=== PATIENT | female | born 1935 | race Caucasian/White ===

== ENCOUNTER 2017-06-05 11:04 | Inpatient (IN) | payer OTHER ==
[2017-06-05 11:39] LABS: PLATELET COUNT 335 10^3/uL (150-400)
--- NOTE | 2017-06-05 11:39 | EDPHY ---
HPI/HX/ROS/PE/MDM Narrative: CHIEF COMPLAINT: Abnormal lab studies HPI: This patient is an 82 year old female with history of COPD arriving at the request of her primary care physician, Dr. Hi, following abnormal lab studies yesterday. She has had pain in the right side of her abdomen intermittently for the past month. This is primarily under her ribcage. She does have history of abdominal surgery including appendectomy and cholecystectomy. she went to her primary care physicians office yesterday for evaluation and had laboratory studies completed. She states the office called her this morning and instructed her to take ambulance to ED due to results of the tests. She is not sure what these results were. No fever, vomiting, diarrhea , rash, chest pain, shortness of breath, urinary complaints, or other associated symptoms. REVIEW OF SYSTEMS: Aside from elements discussed in the HPI, a comprehensive 10-point review of systems was reviewed and is negative. PMH: COPD. Appendectomy, cholecystectomy. SOCIAL HISTORY: Lives in [place]. Retired. Family member at bedside. PHYSICAL EXAM: General:Patient is alert, in no acute distress. ENT:Eyes are normal to inspection. ENT inspection normal. Neck: Normal inspection. Full range of motion. Respiratory:No respiratory distress. Breath sounds normal bilaterally. Cardiovascular: Regular rate and rhythm. Strong peripheral pulses. Normal cap refill. Abdomen:The abdomen is nontender to palpation. There are no peritoneal signs. There are normal bowel sounds. Back: Normal to inspection. No tenderness to palpation. Skin: Normal color. No rash. Warm and dry. Extremities: Normal appearance. Full range of motion. Neuro: Oriented x3. Normal motor function. Normal sensory function. ED Course: 82 y/o female presents at the request of her primary care physician for evaluation following abnormal lab results for a possible infection as well as persistent abdominal pain. Plan for CT abdomen/pelvis. Plan for labs including CBC, chemistries, liver, lipase. Plan to administer 0.5mg IV Dilaudid, 1L IV NS, 4mg IV Zofran for symptom relief. EKG was ordered and interpreted by myself. Please see [facility] system for official reading. Sinus tachycardia. 12:00 Spoke with RANJEET for Dr. Hi's office. Patient was reportedly sent in for elevated WBC. 13:[address] Cardoso, radiologist. CT abdomen/pelvis shows sigmoid diverticulitis and a pancreatic mass with liver metastases. 13:50 Reassessed patient. Discussed results. Plan for admission. 13:56 Spoke with hospitalist service. Dr. Hdez accepts admission for sigmoid diverticulitis and new diagnosis pancreatic mass. - Data Points Imaging Results: Imaging Impressions Abdomen CT 06/05/17 11:50 Impression: 1. Moderate diverticulitis of the sigmoid colon. 2. Large pancreatic tail mass probably invading the posterior wall of the stomach, with extensive liver metastatic disease. There also may be metastatic disease in the left adrenal gland. Omental carcinomatosis. Lymphadenopathy, more predominant in the portacaval region. Also, probable metastatic lesion in L5. 3. Other chronic findings, as above. Results called and discussed with Song Neff MD, on 06/05/2017, 13:58. Imaging: Discussed imaging studies w/ call center agent Radiologist Laboratory Results: Laboratory Results 06/05/17 11:08 06/05/17 11:08 06/05/17 06/05/17 06/05/17 11:08 11:08 11:08 WBC 13.86 10^3/uL H 10^3/uL (3.80-9.50) RBC 4.41 10^6/uL 10^6/uL (4.18-5.33) Hgb 13.3 g/dL g/dL (12.6-16.3) Hct 39.9 % % (38.0-47.0) MCV 90.5 fL fL (81.5-99.8) MCH 30.2 pg pg (27.9-34.1) MCHC 33.3 g/dL g/dL (32.4-36.7) RDW 12.9 % % (11.5-15.2) Plt Count 335 10^3/uL 10^3/uL (150-400) MPV 10.3 fL fL (8.7-11.7) Neut % (Auto) 81.3 % H % (39.3-74.2) Lymph % (Auto) 10.0 % L % (15.0-45.0) Willacy % (Auto) 7.3 % % (4.5-13.0) Eos % (Auto) 0.4 % L % (0.6-7.6) Baso % (Auto) 0.4 % % (0.3-1.7) Nucleat RBC Rel Count 0.0 % % (0.0-0.2) Absolute Neuts (auto) 11.27 10^3/uL H 10^3/uL (1.70-6.50) Absolute Lymphs (auto) 1.39 10^3/uL 10^3/uL (1.00-3.00) Absolute Monos (auto) 1.01 10^3/uL H 10^3/uL (0.30-0.80) Absolute Eos (auto) 0.05 10^3/uL 10^3/uL (0.03-0.40) Absolute Basos (auto) 0.05 10^3/uL 10^3/uL (0.02-0.10) Absolute Nucleated RBC 0.00 10^3/uL 10^3/uL (0-0.01) Immature Gran % 0.6 % % (0.0-1.1) Immature Gran # 0.09 10^3/uL 10^3/uL (0.00-0.10) Sodium 132 mEq/L L mEq/L (135-145) Potassium 3.4 mEq/L L mEq/L (3.5-5.2) Chloride 91 mEq/L L mEq/L (97-110) Carbon Dioxide 23 mEq/l mEq/l (22-31) Anion Gap 18 mEq/L H mEq/L (8-16) BUN 13 mg/dL mg/dL (7-23) Creatinine 0.6 mg/dL mg/dL (0.6-1.0) Estimated GFR > 60 Glucose 147 mg/dL H mg/dL (70-100) Calcium 9.1 mg/dL mg/dL (8.5-10.4) Total Bilirubin 1.8 mg/dL H mg/dL (0.1-1.4) Conjugated Bilirubin 0.9 mg/dL H mg/dL (0.0-0.5) Unconjugated Bilirubin 0.9 mg/dL mg/dL (0.0-1.1) AST 42 IU/L IU/L (14-46) ALT 25 IU/L IU/L (9-52) Alkaline Phosphatase 192 IU/L H IU/L (38-126) Total Protein 6.4 g/dL g/dL (6.3-8.2) Albumin 3.4 g/dL L g/dL (3.5-5.0) Lipase 31 IU/L IU/L (23-300) Medications Given: Discontinued Medications Hydromorphone HCl (Dilaudid) 0.5 mg IVP EDNOW ONE Stop: 06/05/17 13:01 Last Admin: 06/05/17 13:06 Dose: 0.5 mg Sodium Chloride (Ns) 1,000 mls @ 0 mls/hr IV EDNOW ONE; Wide Open PRN Reason: Protocol Stop: 06/05/17 13:01 Last Admin: 06/05/17 13:06 Dose: 1,000 mls General Time Seen by Provider: 06/05/17 11:30 Initial Vital Signs: Initial Vital Signs Temperature (C) 36.6 C 06/05/17 11:16 Heart Rate 110 H 06/05/17 11:16 Respiratory Rate 18 06/05/17 11:16 Blood Pressure 125/68 H 06/05/17 11:16 O2 Sat (%) 93 06/05/17 11:16 O2 Delivery Mode Nasal Cannula O2 (L/minute) 2 Allergies/Adverse Reactions: codeine [Codeine] Allergy (Mild, Verified 03/26/16 11:18) Vomiting Penicillins Allergy (Mild, Verified 03/26/16 11:18) SWELLING steroids Allergy (Uncoded 03/26/16 11:18) Other-Enter Comments Home Medications: Medication Instructions Recorded Amlodipine Besylate/Benazepril 1 each PO DAILY 09/23/15 [Amlodipine-Benazepril 5-10 mg] Albuterol [Proventil Inhaler HFA 1 - 2 puffs IH DAILY PRN 03/23/16 (*)] LORazepam [Ativan (*)] 0.5 mg PO TID PRN 03/23/16 Herbals/Supplements -Info Only 1 ea PO DAILY 06/05/17 Loperamide HCl [Imodium 2 mg (*)] 2 mg PO PRN PRN 06/05/17 diphenhydrAMINE [Benadryl 25 MG 25 mg PO Q2D 06/05/17 (*)] Departure - Departure Disposition: [facility] Acute Clinical Impression: Sigmoid diverticulitis, Pancreatic mass, Liver metastases Condition: Fair Report Scribed for: Song Neff Report Scribed by: Kiersten Mazariegos Date of Report: 06/05/17 Time of Report: 13:31 Physician Review and Approval Statement: Portions of this note were transcribed by an ED scribe. I personally performed the history, physical exam, and medical decision making; and confirm the accuracy of the information in the transcribed note.
[2017-06-05] MEDS ORDERED: IOPAMIDOL (ISOVUE-300) 100 ML BTL ONE (12:43)
[2017-06-05] MEDS ORDERED: NS 1,000 ML IV ONE (13:00)
[2017-06-05] MEDS: HYDROmorphONE/DILAUDID 1 MG/ML INJ IVP ONE ×2 (13:06→15:31)
[2017-06-05] MEDS ORDERED: ONDANSETRON 4 MG/2 ML VIAL ONE (13:09)
[2017-06-05] MEDS ORDERED: ONDANSETRON 4 MG/2 ML VIAL IVP ONE (13:11)
--- NOTE | 2017-06-05 13:13 | CPEKG ---
Heart Rate: 101 RR Interval: 594 P-R Interval: 136 QRSD Interval: 80 QT Interval: 308 QTC Interval: 400 P Leeds: 64 QRS Leeds: 39 T Wave Leeds: 216 EKG Severity - OTHERWISE NORMAL ECG - EKG Impression: SINUS TACHYCARDIA Electronically Signed By: Song Neff 05-Jun-2017 15:06:53
[2017-06-05] MEDS ORDERED: ACETAMINOPHEN 325 MG TAB PO PRN (14:07)
[2017-06-05] MEDS ORDERED: HYDROmorphONE/DILAUDID 1 MG/ML INJ IVP PRN (15:00)
[2017-06-05] MEDS ORDERED: HYDROmorphONE/DILAUDID 1 MG/ML INJ ONE (15:27)
[2017-06-05] MEDS ORDERED: ALBUTEROL 60 PUFFS/8 GM MDI IH PRN (16:10)
--- NOTE | 2017-06-05 16:36 | GHP ---
[f rep st] HISTORY AND PHYSICAL DATE OF ADMISSION: 06/05/2017 CHIEF COMPLAINT: Right upper quadrant pain, diverticulitis, pancreatic mass. HISTORY OF PRESENT ILLNESS: Patient is an 82-year-old female with history of breast cancer status po st mastectomy, COPD on oxygen at night, who arrived at the request of her PCP, Dr. Hi, following abnormal labs done yesterday. The patient is accompanied by her son who provides some history. She complains of right upper and middle abdominal pain for the past month. She describes it as sharp, cr ampy, achy. burning intermittently. There are no aggravating factors. It is relieved by heating pad . She has had night sweats. Has lost 7 to 8 pounds in the last month, which she attributes to decre ased oral intake due to low appetite. Her son says she is not as energetic. No nausea, vomiting. H ad a normal BM today here in the ER. No headaches. REVIEW OF SYSTEMS: I completed a 10-point review of systems, negative except as noted in HPI. PAST MEDICAL HISTORY: Hypertension, IBS, history of breast cancer status post mastectomy, chronic hy poxemic respiratory failure on oxygen at night, COPD. . PAST SURGICAL HISTORY: Left hip arthroplasty, right hip surgery, mastectomy, left lobectomy, cholecy stectomy, appendectomy. SOCIAL HISTORY: Lives with her son, Ismael, in [facility]. She had a 30 pack year of cigarettes. Al cohol, a glass of wine a day. No illicits. MEDICATIONS: Benadryl, albuterol, Imodium as needed, Ativan 0.5 mg three times daily, herbal supplem ent, Norvasc/benazepril 5/10 mg daily. ALLERGIES: Codeine, penicillin is moderate, she says swelling in her throat. PHYSICAL EXAMINATION: VITAL SIGNS: Temperature is 36.6, blood pressure 125/68, heart rate in the 1- teens, now 94, respirations 16, 93% on room air. GENERAL: Tired-appearing, appears older than stated age. HEENT: PERRLA. Mildly dry mucous membranes. CARDIOVASCULAR: Regular rate and rhythm. No murmu rs, gallops, or rubs. LUNGS: Clear to auscultation. ABDOMEN: Distended. Palpable mass right uppe r quadrant, tenderness right upper quadrant and epigastrium. No rebound or guarding. Mild left lowe r quadrant tenderness. MUSCULOSKELETAL: 5/5 upper and lower extremity strength. NEUROLOGIC: 2 thro ugh 12 intact. PSYCHIATRIC: Alert, oriented x3. LABORATORY STUDIES: Sodium 132, potassium 3.4, chloride 91, anion gap 18, creatinine 0.6, glucose 14 7, calcium 9.1, total bilirubin is 1.8, 0.8, alkaline phosphatase 192, albumin 3.4, TP 6.4, lipase 31. WBC 13.86, hemoglobin 13, hematocrit 39, platelets 335. EKG is personally reviewed by me. Sinus tachycardia. Normal sinus rhythm. LVH with ST with ___. No old to compare. IMAGING: Abdominal CT, moderate diverticulitis in the sigmoid colon with wall thickening. No eviden ce of intraperitoneal air. Numerous hypodense lesions in the liver, largest is in the right lobe sarkis uring 17 cm over the dome. Large multi lobulated hypodense mass in the tail of the pancreas measuring 5 5 cm. Large lymph nodes in the portacaval region measuring 2 cm. Small periaortic lymph nodes vi sualized. Probable small subsegmental renal portal cyst. Soft tissue masses are seen in the mesente ty fat anteriorly, inferior to the liver and on the left. ASSESSMENT AND PLAN: 1. Acute abdominal pain, likely multifactorial with pancreatic mass and liver lesions as well as div erticulitis: Patient with mild leukocytosis but no fever. No obvious abscess on imaging. Will jazzy t for diverticulitis with ertapenem as has a moderate allergy to penicillin. Supportive care with IV fluids and antiemetics and IV opioids. 2. Suspected metastatic pancreatic cancer: Large tail mass with multiple lesions in liver as well a s lymphadenopathy. I discussed at length with the patient and her son on options such as biopsy. Esther courtney wants take time to think about her next steps as she is not in favor of chemo. We will check tumor markers. 3. Leukocytosis: Likely secondary to diverticulitis versus dehydration. She is currently afebrile. Will culture fevers. Denies any infectious symptoms. 4. Hypovolemic hyponatremia: Secondary to decreased p.o. intake. Will start IV fluids. 5. Hypokalemia: Again, secondary to decreased p.o. intake. Check magnesium as well. 6. Chronic obstructive pulmonary disease: No evidence of exacerbation. Resume home albuterol. 7. Chronic hypoxemic respiratory failure: Continue oxygen. No infectious symptoms. 8. History of breast cancer. 9. Irritable bowel syndrome: Stable. 10. Hypertension: Will resume home medications. 11. Diet: N.p.o., IV fluids. 12. Deep venous thrombosis prophylaxis. SCDs. 13. Disposition: Patient warrants inpatient admission given acute abdominal pain, diverticulitis and pancreatic mass, warranting IV antibiotics, fluids and possible biopsy. /[id number]/MODL
--- NOTE | 2017-06-05 16:38 | ASMTLACE ---
[place] Acuity / Level of Answers: Yes Care: Did the patient have an inpatient admission? Comorbidities - select Answers: Any tumor (including all that apply lymphoma or leukemia) Chronic pulmonary disease # of Emergency department Answers: 1-2 visits in the last 6 months Score: 8 Date Signed: 06/05/2017 04:38 PM Electronically Signed By:Oksana Miller RN
[2017-06-05] MEDS: HYDROmorphONE/DILAUDID 2 MG/ML INJ IVP PRN ×2 (17:06→22:03)
[2017-06-05] MEDS: D5W NS 1,000 ML IV SCH (17:10)
[2017-06-05] MEDS: ERTAPENEM 1 GM VIAL IV SCH (18:13)
[2017-06-05] MEDS: ONDANSETRON 4 MG/2 ML VIAL IVP PRN (18:38)
[2017-06-05] MEDS: LORazepam 0.5 MG TAB PO SCH (22:03)
[2017-06-06] MEDS: HYDROmorphONE/DILAUDID 2 MG/ML INJ IVP PRN ×4 (03:59→17:31)
[2017-06-06] MEDS: ONDANSETRON 4 MG/2 ML VIAL IVP PRN (04:09)
[2017-06-06] MEDS: D5W NS 1,000 ML IV SCH ×2 (05:51→23:26)
[2017-06-06] MEDS ORDERED: PROTOCOL POTASSIUM 1 DOSE MISC PRN (06:45)
[2017-06-06] MEDS ORDERED: PROTOCOL MAGNESIUM 1 DOSE IV PRN (06:45)
[2017-06-06] MEDS ORDERED: POTASSIUM Cl (KCl) 100 ML IV SCH ×2 (07:45→17:45)
[2017-06-06] MEDS ORDERED: MAGNESIUM SULF 1 GM/DEXTROSE 100 ML IV ONE ×2 (08:28→13:45)
[2017-06-06] MEDS: ERTAPENEM 1 GM VIAL IV SCH (08:29)
[2017-06-06] MEDS: AMLODIPINE BESYLATE 5/BENAZEPRIL 10MG 1 EACH CAP PO SCH ×2 (08:32→12:38)
[2017-06-06] MEDS: LORazepam 0.5 MG TAB PO SCH ×3 (08:32→21:47)
[2017-06-06] MEDS: POTASSIUM Cl (KCl) 10 MEQ in NS 100 ML IV SCH ×7 (08:32→20:17)
[2017-06-06] MEDS ORDERED: Herbals/Supplements -Info Only PO SCH (09:00)
--- NOTE | 2017-06-06 10:29 | PDMN ---
Medical Necessity Medical necessity: Patient meets INPT criteria per physician note and MCG M-150 Diverticulitis, Acute (acute abdominal pain, mod. diverticulitis on CT abd, suspected metastatic pancreatic cancer; leukocytosis/WBC > 13,000, elevated liver enzymes; anticipated LOS > 2 midnights for IV hydration, IV antibiotics, IV opioids, further evaluation of new pancreatic mass with stomach, liver, poss L5 and adrenal lesions.)
--- NOTE | 2017-06-06 14:33 | HOSPPROG ---
Hospitalist Progress Note Assessment/Plan: #Acute abdominal pain: due to liver masses. Pain controlled #Suspected metastatic pancreatic cancer -large panc tail mass with liver, omental lesions, LAD. Elevated CA-125. CA 19- 9 pending -she is leaning toward comfort care, but wants to d/w son #Sigmoid diverticulitis -min pain. normal lactate. Trial clears. Cont Ertapenem with PCN-allergies #Hypovolemic hyponatremia: recent decreased PO intake. IVF #Hypokalemia/hypomagnesium: on protocol #Leukocytosis: mildly improved. Afebrile. #Diet: clears, ADAT #SCDs #Goals: she is leaning towards Palliative measures and no biopsy, but she wants to d/w son. Palliative care consulted Subjective: pain controlled in RUQ. Hungry and wants to eat Objective: Vital Signs Temp Pulse Resp BP Pulse Ox 36.8 C 91 18 120/54 L 94 06/06/17 09:38 06/06/17 14:09 06/06/17 14:09 06/06/17 14:09 06/06/17 14:09 Laboratory Results 06/06/17 04:48 06/06/17 04:48 06/05/17 06/06/17 06/07/17 05:59 05:59 05:59 Intake Total 1776 Output Total 100 Balance 1776 -100 - Physical Exam Constitutional: other (tired) Eyes: PERRL Ears, Nose, Mouth, Throat: moist mucous membranes, hearing normal Cardiovascular: regular rate and rhythym, no murmur, rub, or gallop Respiratory: no respiratory distress Gastrointestinal: distension, other (mass palpable RUQ. Min LLQ TTP, +BS) Genitourinary: no bladder fullness Skin: warm Musculoskeletal: full muscle strength Neurologic: AAOx3 Psychiatric: interacting appropriately ICD10 Worksheet Patient Problems: Problems Problem Status Onset Liver metastases Acute Pancreatic mass Acute Sigmoid diverticulitis Acute Osteoarthritis of left hip Acute
--- NOTE | 2017-06-06 15:41 | ASMTCMCOM ---
CM Note CM Note Notes: Pt admitted with suspected pancreatic ca. Pt is leaning towards no treatment but wants to discuss with her son before she makes her final decision. has ordered a palliative consult. CM will continue to follow for any DC needs. Date Signed: 06/06/2017 03:40 PM Electronically Signed By:Anali Velazquez LCSW
[2017-06-06] MEDS ORDERED: POTASSIUM CL 20 MEQ TAB PO ONE (20:15)
[2017-06-07] MEDS: HYDROmorphONE/DILAUDID 2 MG/ML INJ IVP PRN ×3 (01:59→17:33)
[2017-06-07] MEDS: LORazepam 0.5 MG TAB PO SCH ×3 (08:29→20:45)
[2017-06-07] MEDS: ERTAPENEM 1 GM VIAL IV SCH (08:31)
[2017-06-07] MEDS ORDERED: POTASSIUM CL 10 MEQ TAB PO ONE ×2 (12:57→20:45)
--- NOTE | 2017-06-07 14:52 | HOSPPROG ---
Hospitalist Progress Note Assessment/Plan: #Acute abdominal pain: due to liver/pancreatic masses. Pain controlled #Suspected metastatic pancreatic cancer: + CA-125, 19-9 -appreciate Oncology consult. Patient would like to pursue tissue biopsy. -difficulty eating may due to tumor burden posterior stomach. Concern for subsequent gastric outlet obstruction in future. -May benefit from XRT for palliation #Sigmoid diverticulitis -min pain. normal lactate. Trial clears. Cont Ertapenem (PCN-allergy). Day 3 #Hypovolemic hyponatremia: recent decreased PO intake. Improved with IVFs #Rectal bleeding: decreased. She reports related to hemorrhoids. If related to tumor would expect melena given invasion near stomach. Repeat H/H stable #Hypokalemia/hypomagnesium: on protocol. Repleted #Leukocytosis: mildly improved. Afebrile. #Diet: clears, ADAT #SCDs #Goals: son is very involved. Palliative Care consulted #Disp: cont inpatient admission for IV abx, liver bx. Discussed with Dr. Moss Subjective: min rectal bleeding today. No dizziness or lightheadedness. RUQ pain controlled Objective: Vital Signs Temp Pulse Resp BP Pulse Ox 36.8 C 87 18 130/81 H 92 06/07/17 08:35 06/07/17 08:35 06/07/17 08:35 06/07/17 08:35 06/07/17 08:35 Laboratory Results 06/07/17 12:09 06/07/17 04:38 06/06/17 06/07/17 06/08/17 05:59 05:59 05:59 Intake Total 1776 2614 Output Total 100 Balance 1776 2514 - Time Spent With Patient Time Spent with Patient: greater than 35 minutes Time Spent with Patient: Greater than 35 minutes spent on this patients care, greater than 50% of time spent counseling, educating, and coordinating care regarding the above mentioned plan. - Physical Exam Constitutional: chronically ill appearing Eyes: PERRL Ears, Nose, Mouth, Throat: moist mucous membranes, hearing normal Cardiovascular: regular rate and rhythym, no murmur, rub, or gallop Respiratory: no respiratory distress Gastrointestinal: tenderness (most in RUQ, mild in LLQ, +BS), distension Skin: warm Musculoskeletal: full muscle strength Neurologic: AAOx3, CN II-XII Intact Psychiatric: poor insight ICD10 Worksheet Patient Problems: Problems Problem Status Onset Liver metastases Acute Pancreatic mass Acute Sigmoid diverticulitis Acute Osteoarthritis of left hip Acute
--- NOTE | 2017-06-07 15:56 | ASMTCMCOM ---
CM Note CM Note Notes: Chart reviewed. Attempted to met with patient but she is asleep. Notes indicate patient wishes to pursue biopsy. Plan of care TBD at this time. CM to follow. Date Signed: 06/07/2017 03:55 PM Electronically Signed By:Megan Grace RN
--- NOTE | 2017-06-07 16:24 | ASMTCMCOM ---
CM Note CM Note Notes: Per Spiritual services, Palliative care to meet with patient next week after biopsy results are in. CM to follow. Date Signed: 06/07/2017 04:23 PM Electronically Signed By:Megan Grace RN
--- NOTE | 2017-06-07 16:59 | GCON ---
[f rep st] CONSULTATION MEDICAL ONCOLOGY CONSULTATION REQUESTING PHYSICIAN: Dr. Nancy Hdez. REASON FOR CONSULTATION: Pancreatic mass with evidence of metastasis. HISTORY OF PRESENT ILLNESS: The patient is an 82-year-old female with a history of breast cancer 20 years ago as well as COPD on O2 at night, who was admitted for abnormal labs and abdominal pain. The patient reports she was in her usual state of health up until a month ago when she started to experi ence mild weight loss, poor p.o. intake and weakness. Prior to admission, she was complaining of rig ht upper and middle abdominal pain, described it as sharp, crampy, intermittent, burning. She denied any back pain. She has had some nausea and difficulty eating due to this. She did have a normal jacob wel movement in the ER on admission, but has had some hematochezia since that time. She does report a history of hemorrhoids. The patient had a CT of her abdomen done on the day of admission on 06/05/2017, showing moderate dive rticulitis of sigmoid colon, a large pancreatic tail mass probably invading posterior wall of the sto mach with extensive liver metastatic disease, may also be metastatic disease in left adrenal gland. Omental carcinomatosis is noted. Lymphadenopathy more predominant in portacaval region. Also, proba ble metastatic lesion in L5. Other chronic findings were noted. The patient has been waxing and waning as far as wanting treatment but requested an oncology consult today to discuss with her son. She continues on ertapenem for evidence of diverticulitis but still h aving issues with nausea and abdominal pain. She does respond to IV Dilaudid. I will note that CA-1 9-9 is 5732 and CA-125 is 218. REVIEW OF SYSTEMS: As per HPI, otherwise negative. PAST MEDICAL HISTORY: 1. Hypertension. 2. IBS. 3. Breast cancer 20 years ago status post mastectomy, no adjuvant radiation or chemotherapy per emily ent choice. 4. Chronic hypoxemia due to COPD, on chronic O2. PAST SURGICAL HISTORY: Left hip arthroplasty, right hip surgery, mastectomy, left lobectomy, cholecy stectomy, appendectomy. Her left hip arthroplasty was about a year ago and she had cardiac clearance . SOCIAL HISTORY: Lives with son. Has smoked for many years. Occasionally drinks. No illicits. She was very functional at home prior to this admission. MEDICATIONS: Have been reviewed. ALLERGIES: Have been reviewed. PHYSICAL EXAM: VITAL SIGNS: Blood pressure currently 130/81, pulse of 87, saturating 92% on 2 L luis al cannula. Respiration 18. Temp 36.8. GENERAL: She is an elderly woman, looks her stated age, no t in acute distress. HEENT: Anicteric sclerae. Oropharynx is clear. NECK: Supple. No supraclavic ular lymphadenopathy. HEART: Regular rate and rhythm. LUNGS: She has coarse breath sounds bilater ally, maybe mild crackle at right lower lobe. ABDOMEN: Distended. She is tender throughout. No ob vious ascites. EXTREMITIES: Lower extremities no significant edema. NEUROLOGIC: Nonfocal. LABS: Today show hemoglobin 11.7, hematocrit 35.4. Her most recent CMP was yesterday, sodium 132, p otassium 2.9, calcium 8.1, total bilirubin 0.8, AST 32, ALT 26, alkaline phosphatase 160, total prote in 5.1, albumin 2.5, lipase 31. CA-19-9 and CA-125 elevated, as discussed above. ASSESSMENT AND PLAN: This is an 82-year-old woman with the above-mentioned past medical history, cherise becky chronic obstructive pulmonary disease, admitted for abdominal pain and subsequently discovered to have evidence of sigmoid diverticulitis as well as large pancreatic mass and significant amount of m etastasis throughout the abdomen. 1. Pancreatic mass with associated liver metastasis, peritoneal carcinomatosis, and other findings a s detailed above. CA-19-9 very elevated, CA-125 elevated as well. Concern for pancreatic cancer. Ca nnot rule out other subtypes of cancer at this time without tissue biopsy. The patient's performance status is approximately a 2. She reports she was doing a lot better at home before she got sick a m onth ago. I discussed my concern with CT findings today showing a large pancreatic mass with probabl e invasion to the posterior stomach. She understands this is treatable, but given the current findin gs, may result in high morbidity. She is at least interested in obtaining a tissue biopsy to help he r make a decision about comfort care or pursuing a modified treatment plan. She has no evidence of g astric outlet obstruction but certainly, this would be a concern of mine. May even consider some pal liative radiation due to possible stomach invasion. I am not sure the patient would tolerate much, a nd may offer her gemcitabine as a single agent if she wants treatment. However, she is unclear if kennedi courtney wants to pursue this at all. Intravenous access would be an issue, she will probably need a periph erally inserted central catheter line. 2. Diverticulitis, on antibiotics. This may be contributing to some of her pain. 3. Abdominal pain due to #1 and #2. She is on intravenous Dilaudid and responding. Consider fentan yl patch to better control pain, especially if she is pursuing hospice. 4. Intermittent hematochezia, possibly due to hemorrhoids. Would need to monitor this closely if kennedi courtney wanted to pursue any form of treatment. 5. Chronic obstructive pulmonary disease. Remains stable from a respiratory standpoint. Greater than 40 minutes was spent with patient and son, discussing options. At this time, they have opted to move forward with a biopsy alone and can make further recommendations as more family members are able to arrive. /[id number]/MODL
[2017-06-07] MEDS: NS 1,000 ML IV SCH (20:54)
[2017-06-08] MEDS: HYDROmorphONE/DILAUDID 2 MG/ML INJ IVP PRN ×3 (05:17→23:23)
[2017-06-08] MEDS ORDERED: MAGNESIUM SULF 1 GM/DEXTROSE 100 ML IV ONE (08:23)
[2017-06-08] MEDS: LORazepam 0.5 MG TAB PO SCH ×4 (09:19→20:38)
[2017-06-08] MEDS: ERTAPENEM 1 GM VIAL IV SCH (09:20)
[2017-06-08] MEDS: NS 1,000 ML IV SCH ×2 (09:28→18:41)
--- NOTE | 2017-06-08 10:17 | SOAPPROG ---
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 Biopsy soon to confirm * Acute abdominal pain controlled with 1.2 mg dilaudid iv yesterday - not enough for patch. Will try Tramadol * Most likely incurable and she doesn't want chemo * Probable gastric outlet * Reluctant to undergo barium study * Might benefit from J-tube but she is undecided * Sigmoid diverticulitis * min pain. normal lactate. Trial clears. Cont Ertapenem (PCN-allergy). Day 4 * Disposition * Suspect best course of action is palliative care only with hospice. Palliative care consult written * She has a lot of questions about finances and care for her son Objective: Vital Signs Temp Pulse Resp BP Pulse Ox 36.2 C 99 18 141/75 H 93 06/08/17 04:00 06/08/17 04:00 06/08/17 04:00 06/08/17 04:00 06/08/17 04:00 Laboratory Results 06/08/17 05:10 06/08/17 05:10 06/07/17 06/08/17 06/09/17 05:59 05:59 05:59 Intake Total 2614 1271 Output Total 100 Balance 2514 1271 - Time Spent With Patient Time Spent With Patient: 25 minutes Physical Exam - Physical Exam General Appearance: no apparent distress Neuro/Psych: other (Not disoriented but a little foogy with narcotics) ICD10 Worksheet Patient Problems: Problems Problem Status Onset Liver metastases Acute Pancreatic mass Acute Sigmoid diverticulitis Acute Osteoarthritis of left hip Acute
[2017-06-08] MEDS: traMADol 50 MG TAB PO PRN (14:04)
--- NOTE | 2017-06-08 15:26 | HOSPPROG ---
Hospitalist Progress Note Assessment/Plan: 82-year-old woman with a history of COPD and a remote history of breast cancer is admitted with abdominal pain and weight loss. She saw her primary care provider the day before admission had some blood work done and was told to come into the hospital. Evaluation included a CT scan which revealed a pancreatic mass with gastric involvement and liver Mets. # pancreatic mass with liver Mets and gastric involvement. Elevated CA 19-9 points to likely pancreatic primary * Ultrasound-guided biopsy of liver metastases to be done on Saturday * Appreciate Oncology note apparently patient is not interested in chemotherapy at this time and will work towards palliative care * Pain control, tramadol and effective today will try oral Dilaudid # sigmoid diverticulitis, mild tenderness on the sigmoid colon and patient has ongoing diarrhea * Continue IV antibiotics * Advance diet slowly, will let her try light diet and see how she does # diarrhea, and reluctant to start Imodium given her acute diverticulitis. Will follow for now and consider pancreatic enzymes if persists # possible gastric outlet obstruction given location of gastric wall thickening and pancreatic mass. Patient is reluctant to undergo barium swallow. She might benefit from a J-tube but is undecided at this time. Will see how she tolerates oral. # COPD, mild: Continue oxygen as needed nebs as needed. # hypokalemia, replace as needed # leukocytosis, likely secondary to cancer and diverticulitis will follow. Disposition: Patient has poor prognosis at this time and is declining chemotherapy. Palliative care to meet with patient and son. Subjective: Patient new to me and chart reviewed. Discussed with Dr. Diana. Tried the tramadol earlier but was ineffective so back on IV Dilaudid and her pain is better controlled Objective: Vital Signs Temp Pulse Resp BP Pulse Ox 36.3 C 81 18 121/69 H 96 06/08/17 09:05 06/08/17 09:05 06/08/17 09:05 06/08/17 09:05 06/08/17 09:05 Laboratory Results 06/08/17 05:10 06/08/17 05:10 06/07/17 06/08/17 06/09/17 05:59 05:59 05:59 Intake Total 2614 1271 Output Total 100 600 Balance 2514 1271 -600 - Physical Exam Constitutional: uncomfortable Eyes: PERRL, anicteric sclera, EOMI Ears, Nose, Mouth, Throat: moist mucous membranes, ears appear normal Cardiovascular: regular rate and rhythym Respiratory: no respiratory distress, clear to auscultation Gastrointestinal: tenderness (Epigastric area right upper quadrant and left lower quadrant), distension, No normoactive bowel sounds, No guarding, No rebound Genitourinary: no bladder fullness Skin: warm Musculoskeletal: generalized weakness Neurologic: AAOx3 Psychiatric: interacting appropriately, not anxious ICD10 Worksheet Patient Problems: Problems Problem Status Onset Liver metastases Acute Pancreatic mass Acute Sigmoid diverticulitis Acute Osteoarthritis of left hip Acute
[2017-06-08] MEDS ORDERED: HYDROmorphONE/DILAUDID 2 MG TAB PO PRN (15:36)
[2017-06-08] MEDS: ALTEPLASE 2 MG VIAL IVP PRN (22:40)
[2017-06-09] MEDS: ALTEPLASE 2 MG VIAL IVP PRN (04:13)
[2017-06-09] MEDS: traMADol 50 MG TAB PO PRN (04:37)
[2017-06-09 04:49] LABS: INR 1.42 (0.83-1.16); PROTIME(PATIENT) 17.5 SEC (12.0-15.0)
[2017-06-09] MEDS ORDERED: MAGNESIUM SULF 1 GM/DEXTROSE 100 ML IV ONE (07:23)
[2017-06-09] MEDS ORDERED: POTASSIUM Cl (KCl) 100 ML IV SCH (07:30)
[2017-06-09] MEDS: LORazepam 0.5 MG TAB PO SCH ×3 (07:41→22:13)
[2017-06-09] MEDS: ERTAPENEM 1 GM VIAL IV SCH (08:29)
[2017-06-09] MEDS: POTASSIUM Cl (KCl) 10 MEQ in NS 100 ML IV SCH ×3 (08:30→13:41)
--- NOTE | 2017-06-09 10:33 | SOAPPROG ---
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 * Acute abdominal pain controlled with 1.2 mg dilaudid iv yesterday - not enough for patch. Tramadol not helpful. Tried oral dialaudid. * Most likely incurable and she doesn't want chemo but she "wants to live 5 months". I told her the average without chemo is within 3 months * Probable gastric outlet * Reluctant to undergo barium study * I explained that without some nutrition, she will sooner. Suspect she is partially obstructed. Spoke with Dr. Mcwilliams and GI might be able to stent her. Will get formal consult to assess obstruction, get biopsies, and see if she would qualify for a stent. * I tried to call son multiple times but no answer * Sigmoid diverticulitis * min pain. normal lactate. Trial clears. Cont Ertapenem (PCN-allergy). Day 5 * Disposition * Suspect best course of action is palliative care only with hospice. Palliative care consult written * She has a lot of questions about finances and care for her son Subjective: Trying some cream of wheat this morning. Mixed tolerability to clears. Still little foggy. Objective: Vital Signs Temp Pulse Resp BP Pulse Ox 36.6 C 79 16 137/80 H 97 06/09/17 07:36 06/09/17 07:36 06/09/17 07:36 06/09/17 07:36 06/09/17 07:36 Laboratory Results 06/09/17 04:10 06/09/17 04:10 06/08/17 06/09/17 06/10/17 05:59 05:59 05:59 Intake Total 1271 2125 Output Total 1500 Balance 1271 625 PT 17.5 SEC (12.0-15.0) H 06/09/17 04:10 INR 1.42 (0.83-1.16) H 06/09/17 04:10 Physical Exam - Physical Exam General Appearance: no apparent distress Respiratory: lungs clear Cardiac/Chest: regular rate, rhythm Abdomen: soft Neuro/Psych: other (trouble with short term memory) ICD10 Worksheet Patient Problems: Problems Problem Status Onset Liver metastases Acute Pancreatic mass Acute Sigmoid diverticulitis Acute Osteoarthritis of left hip Acute
--- NOTE | 2017-06-09 13:33 | HOSPPROG ---
Hospitalist Progress Note Assessment/Plan: 82-year-old woman with a history of COPD and a remote history of breast cancer is admitted with abdominal pain and weight loss. She saw her primary care provider the day before admission had some blood work done and was told to come into the hospital. Evaluation included a CT scan which revealed a pancreatic mass with gastric involvement and liver Mets. # pancreatic mass with liver Mets and gastric involvement. Elevated CA 19-9 points to likely pancreatic primary * Ultrasound-guided biopsy of liver metastases to be done on Saturday, unless early EGD can get tissue. * Appreciate Oncology note Pt might be interested in chemo if palliative and well tolerated and may also be iterested in XRT * Pain control, tramadol not effective, does OK with PO dilauded but a little confused. # sigmoid diverticulitis, mild tenderness on the sigmoid colon and patient has ongoing diarrhea * Continue IV antibiotics * Advance diet slowly, will let her try light diet and see how she does # diarrhea, and reluctant to start Imodium given her acute diverticulitis. Will follow for now and consider pancreatic enzymes if persists # possible gastric outlet obstruction given location of gastric wall thickening and pancreatic mass. * GI consult for ? stent/biopsy. * could consider surgical J-tube # COPD, mild: Continue oxygen as needed nebs as needed. # hypokalemia, replace as needed # leukocytosis, likely secondary to cancer and diverticulitis will follow. Disposition: Patient has poor prognosis at this time and is declining chemotherapy. Palliative care to meet with patient and son. Will also get PT and OT to assess home needs. She would eventually like to go home with hospice or palliative care Subjective: Able to eat a little bit for lunch and so far has tolerated it well. Still having some diarrhea. Objective: Vital Signs Temp Pulse Resp BP Pulse Ox 36.4 C 83 16 140/83 H 97 06/09/17 12:00 06/09/17 12:00 06/09/17 12:00 06/09/17 12:00 06/09/17 12:00 Laboratory Results 06/09/17 04:10 06/09/17 04:10 06/08/17 06/09/17 06/10/17 05:59 05:59 05:59 Intake Total 1271 2125 Output Total 1500 Balance 1271 625 PT 17.5 SEC (12.0-15.0) H 06/09/17 04:10 INR 1.42 (0.83-1.16) H 06/09/17 04:10 - Physical Exam Constitutional: chronically ill appearing Eyes: PERRL Ears, Nose, Mouth, Throat: moist mucous membranes Cardiovascular: regular rate and rhythym Respiratory: no respiratory distress Gastrointestinal: normoactive bowel sounds, tenderness (Left lower quadrant and epigastric area) Genitourinary: no bladder fullness Musculoskeletal: generalized weakness Neurologic: No facial droop Psychiatric: interacting appropriately, anxious ICD10 Worksheet Patient Problems: Problems Problem Status Onset Liver metastases Acute Pancreatic mass Acute Sigmoid diverticulitis Acute Osteoarthritis of left hip Acute
[2017-06-10] MEDS ORDERED: POTASSIUM CL 20 MEQ TAB PO ONE
[2017-06-10] MEDS: POTASSIUM Cl (KCl) 50 ML IV SCH ×2 (00:30→02:46)
[2017-06-10] MEDS: ONDANSETRON DISINTEGRATING 4 MG TAB PO PRN (05:41)
[2017-06-10] MEDS: traMADol 50 MG TAB PO PRN (05:41)
[2017-06-10] MEDS ORDERED: MAGNESIUM SULF 1 GM/DEXTROSE 100 ML IV ONE (07:37)
[2017-06-10] MEDS: HYDROmorphONE/DILAUDID 2 MG/ML INJ IVP PRN ×2 (08:31→20:54)
[2017-06-10] MEDS: LORazepam 0.5 MG TAB PO SCH ×3 (08:31→20:55)
[2017-06-10] MEDS: ERTAPENEM 1 GM VIAL IV SCH (09:23)
--- NOTE | 2017-06-10 09:48 | SOAPPROG ---
[facility] Progress Note Assessment/Plan: Assessment: 1) Metastatic pancreatic cancer 2) Abdominal pain secondary to #1 3) Possible gastric outlet obstruction secondary to #1 Plan: Patient to have ultrasound guided bx of a liver mass today. GI consult has been requested for EGD and possible palliative duodenal stent. Patient remains undecided about whether or not she would want to pursue palliative chemotherapy treatment. I had a discussion with her about his today. Assuming that her biopsy confirms a pancreatic adenocarcinoma, her overall prognosis is poor. I am unsure how well she would be able to tolerate chemotherapy. I agree with a palliative care consult today, which will be helpful in clarifying the goals of care. Certainly a trial of palliative Gemzar based chemotherapy could be considered. Continue PRN Dilaudid for pain control. Case d/w nursing and Hospitalist service (Dr. Pierce). Patient's questions answered. 06/10/17 09:27 Subjective: Denies pain. Appetite remains poor Objective: Vital Signs Temp Pulse Resp BP Pulse Ox 37.6 C 89 18 141/83 H 85 L 06/09/17 23:33 06/09/17 23:33 06/09/17 23:33 06/09/17 23:33 06/10/17 04:00 Laboratory Results 06/10/17 04:51 06/10/17 04:51 06/09/17 06/10/17 06/11/17 05:59 05:59 05:59 Intake Total 2125 1000 Output Total 1500 200 Balance 625 800 PT 17.5 SEC (12.0-15.0) H 06/09/17 04:10 INR 1.42 (0.83-1.16) H 06/09/17 04:10 - Time Spent With Patient Time Spent With Patient: 30 minutes Physical Exam - Physical Exam General Appearance: alert, no apparent distress EENT: PERRL/EOMI Respiratory: lungs clear Cardiac/Chest: regular rate, rhythm Abdomen: soft, other (Mild diffuse tenderness. No palpable mass.) Skin: normal color Neuro/Psych: alert, normal mood/affect ICD10 Worksheet Patient Problems: Problems Problem Status Onset Liver metastases Acute Pancreatic mass Acute Sigmoid diverticulitis Acute Osteoarthritis of left hip Acute
[2017-06-10] MEDS ORDERED: LIDOCAINE 1% 300 MG/30 ML SDV ONE (10:44)
[2017-06-10] MEDS ORDERED: fentaNYL 100 MCG/2 ML INJ ONE (11:00)
[2017-06-10] MEDS ORDERED: MIDAZOLAM 2 MG/2 ML VIAL ONE (11:00)
[2017-06-10] MEDS ORDERED: FLUMAZENIL 0.5 MG/5 ML MDV IVP ONE (11:01)
[2017-06-10] MEDS ORDERED: NALOXONE HCL 0.4 MG/ML INJ ONE (11:01)
--- NOTE | 2017-06-10 11:04 | PDPROPOC ---
Sedation Plan of Care Sedation Plan of Care: vital signs stable, mental status noted, patient educated of risks, benefits, alternatives, patient can tolerate sedation ASA Classification: ASA 2 Planned drugs: fentanyl, midazolam Mallampati Score: Class 2 Mallampati Reference Image: Patient passed 3-3-2 rule?: Yes
[2017-06-10] MEDS ORDERED: GLUCAGON HCL 1 MG VIAL IVP PRN (11:06)
[2017-06-10] MEDS ORDERED: MEPERIDINE 25 MG/ML SYR IVP PRN (11:06)
[2017-06-10] MEDS ORDERED: NALOXONE HCL 0.4 MG/ML INJ IVP PRN ×2 (11:06→16:18)
[2017-06-10] MEDS ORDERED: PROTAMINE SULFATE 50 MG/5 ML VIAL IVP PRN (11:06)
[2017-06-10] MEDS ORDERED: FLUMAZENIL 0.5 MG/5 ML MDV IVP PRN (11:06)
[2017-06-10] MEDS ORDERED: fentaNYL 100 MCG/2 ML INJ IVP PRN ×2 (11:06→16:18)
[2017-06-10] MEDS ORDERED: ALTEPLASE 2 MG VIAL IVP PRN (11:06)
[2017-06-10] MEDS ORDERED: MIDAZOLAM 2 MG/2 ML VIAL IVP PRN (11:06)
[2017-06-10] MEDS ORDERED: HEPARIN 10,000 UNIT/10 ML MDV (1,000 UNIT/ML) IVP PRN (11:06)
--- NOTE | 2017-06-10 11:06 | PDGENHP ---
History & Physical Chief Complaint: multifocal liver metastases History of Present Illness: malignancy evident on CT. H/o BrCA. Pertinent Past, Social, Family History: n/a Relevant Physical Exam: NAD, RRR, abdomen nondistended Cardiorespiratory Assessment: nl WOB, RRR
[2017-06-10] MEDS ORDERED: NS 1,000 ML IV SCH (11:15)
--- NOTE | 2017-06-10 12:06 | PDRADPN ---
Radiology Procedure Note Date of Procedure: 06/10/17 Radiologist: Alex Escudero Anesthesia: IV Sedation, Local (Specify) Pre-op Diagnosis: metastatic liver disease Post-op Diagnosis: same Indication: diagnosis of metastatic disease entitiy Procedure: US guided core liver mass biopsy Finding(s): bulky hypoechoic liver massess. segment 3 mass targeted. good specimen volume. no immediate hematoma seen. Inf/Abcess present in the surg proc area at time of surgery?: No Depth: Organ Space EBL: Minimal Complications: none apparent Specimen(s): Two 18G core specimens submitted in formalin
--- NOTE | 2017-06-10 13:01 | HOSPPROG ---
Hospitalist Progress Note Assessment/Plan: 82-year-old woman with a history of COPD and a remote history of breast cancer is admitted with abdominal pain and weight loss. She saw her primary care provider the day before admission had some blood work done and was told to come into the hospital. Evaluation included a CT scan which revealed a pancreatic mass with gastric involvement and liver Mets. # pancreatic mass with liver Mets and gastric involvement. Elevated CA 19-9 points to likely pancreatic primary * Ultrasound-guided biopsy of liver metastases to be done on Saturday, * Appreciate Oncology note Pt might be interested in chemo if palliative and well tolerated * Pain control, tramadol not effective, does OK with PO dilauded but a little confused. # sigmoid diverticulitis, possibly secondary to tumor along the sigmoid rather than acute diverticulitis will discontinue IV antibiotics for now follow-up # diarrhea, can start low-dose Imodium depending on patient's symptoms # possible gastric outlet obstruction given location of gastric wall thickening and pancreatic mass. * GI consult for ? stent/biopsy. * could consider surgical J-tube # COPD, mild: Continue oxygen as needed nebs as needed. # hypokalemia, replace as needed # leukocytosis, likely secondary to cancer and diverticulitis will follow. Disposition: Patient has poor prognosis at this time and is declining chemotherapy. Palliative care to meet with patient and son. Will also get PT and OT to assess home needs. She would eventually like to go home with hospice or palliative care Subjective: No new complaints Objective: Vital Signs Temp Pulse Resp BP Pulse Ox 36.8 C 93 16 122/63 H 98 06/10/17 12:17 06/10/17 11:13 06/10/17 12:17 06/10/17 12:17 06/10/17 12:17 Laboratory Results 06/10/17 04:51 06/10/17 04:51 06/09/17 06/10/17 06/11/17 05:59 05:59 05:59 Intake Total 2125 1000 Output Total 1500 200 Balance 625 800 PT 17.5 SEC (12.0-15.0) H 06/09/17 04:10 INR 1.42 (0.83-1.16) H 06/09/17 04:10 - Physical Exam Constitutional: chronically ill appearing, uncomfortable Respiratory: no respiratory distress Psychiatric: interacting appropriately, anxious ICD10 Worksheet Patient Problems: Problems Problem Status Onset Osteoarthritis of left hip Acute Sigmoid diverticulitis Acute Pancreatic mass Acute Liver metastases Acute
--- NOTE | 2017-06-10 14:55 | GCON ---
[f rep st] CONSULTATION DATE OF CONSULTATION: 06/10/2017 REQUESTING PHYSICIAN: Dr. Pierce. CHIEF COMPLAINT: Abdominal pain, poor p.o. intake. HPI: I am asked to see this patient in consultation by Dr. Pierce, for chief complaint of abdominal pa in with pancreatic cancer. Patient is a pleasant 82-year-old recently diagnosed with large pancreati c tumor involving the tail, measuring 6 x 5 cm, and appears to be abutting, if not invading the gastr ic wall. The patient had a CT scan that also showed possible thickening of the sigmoid colon, may be diverticulitis, as well as omentum thickening and multiple liver mets. She states that for about a month she has had poor p.o. intake and some early satiety, poor appetite, but denies frequent nausea and vomiting. She does note abdominal pain that at this point is primarily in the right upper quadra nt, but some lower abdominal pain as well. She has had some night sweats and has lost 7-8 pounds ove r the past month. ALLERGIES: Patient is allergic to codeine, penicillin. MEDICATIONS ON ADMISSION: Benadryl, albuterol, Imodium, Ativan, herbal supplements, Norvasc and jewel zepril. PAST MEDICAL HISTORY: Notable for hypertension, irritable bowel syndrome, history of breast cancer s tatus post mastectomy, COPD requiring oxygen at night. SOCIAL HISTORY: Patient lives with her son. She is a smoker. FAMILY HISTORY: Negative for colon cancer. REVIEW OF SYSTEMS: I have performed a complete review of systems which is negative except for the pe rtinent positives and negatives noted above in HPI. PHYSICAL EXAM: VITAL SIGNS: Afebrile at 36.1, BP 141/81, pulse 102. GENERAL: She is alert, in no apparent distress. HEENT: Eyes without scleral icterus. No oral lesions. CARDIOVASCULAR: Regular rhythm. CHEST: Clear to auscultation. However, there is some expiratory wheeze. ABDOMEN: Slight ly distended. She is tender in the right upper quadrant. Some tenderness to deep palpation in the l eft lower quadrant, but without rebound. NEUROLOGIC: Nonfocal. SKIN: No rashes. LABORATORY DATA: White count 12, hematocrit 34.5, protein is 17.5 and INR 1.42. BUN and creatinine are 4 and 0.9. LFTs are normal with alk phos 123, AST and ALT are 28, total bilirubin is 1.7. CT sc an of the abdomen obtained 06/05/2017, shows moderate diverticulitis involving the sigmoid colon, lar ge pancreatic mass in the tail measuring 5 x 6 cm and appears to be invading the posterior wall of th e stomach with extensive liver mets, also probable metastatic disease to the left adrenal and omental carcinomatosis, lymphadenopathy in prominent portal caval region. ASSESSMENT AND PLAN: Patient with pancreatic mass consistent with pancreatic cancer with multiple me tastasis, poor p.o. intake. At this point, patient is declining chemotherapy, but major issue is nut rition. The patient is not able to take much p.o. with concerns of possible gastric outlet obstructi on given the appearance of the tumor invading into the stomach, although otherwise her stomach is not particularly distended. Question if she may benefit from stenting if there is tumor causing poor ga stric emptying or a bowel obstruction. I will discuss with Dr. Mcintyre, about possible upper endoscopy for evaluation to see if she may be a candidate for stenting. At this point she would appear to be a poor candidate for PEG tube. Patient to have liver biopsy today and then will discuss further with the family about care options. Thanks for the consult. /[id number]/MODL
[2017-06-10] MEDS ORDERED: LR 1,000 ML IV ONE (15:20)
[2017-06-10] MEDS ORDERED: PROPOFOL 200 MG/20 ML VIAL ONE (16:06)
[2017-06-10] MEDS ORDERED: ALBUTEROL 3 ML DEYVIAL IH PRN (16:18)
[2017-06-10] MEDS ORDERED: ONDANSETRON 4 MG/2 ML VIAL IVP PRN (16:18)
--- NOTE | 2017-06-10 16:18 | PDANEPAE ---
ANE Past Medical History - Cardiovascular History Hx Hypertension: Yes Hx Arrhythmias: No Hx Chest Pain: No Hx Coronary Artery / Peripheral Vascular Disease: No Hx CHF / Valvular Disease: No Hx Palpitations: No - Pulmonary History Hx COPD: Yes Hx Asthma/Reactive Airway Disease: No Hx Recent Upper Respiratory Infection: No Hx Oxygen in Use at Home: Yes O2 in Use at Home (L/minute): 2 Hx Sleep Apnea: No Sleep Apnea Screening Result - Last Documented: Negative - Neurologic History Hx Cerebrovascular Accident: No Hx Seizures: No Hx Dementia: No - Endocrine History Hx Diabetes: No Endocrine History Comment: THYROID GROWTH - Renal History Hx Renal Disorders: No - Liver History Hx Hepatic Disorders: Yes Hepatic History Comment: CHOLECYSTECTOMY - Neurological & Psychiatric Hx Hx Neurological and Psychiatric Disorders: No - Cancer History Hx Cancer: Yes Cancer History Comment: BREAST CA - Congenital Disorder History Hx Congenital Disorders: No - GI History Hx Gastrointestinal Disorders: Yes Gastrointestinal History Comment: COLITIS - Other Health History Other Health History: NEG - Chronic Pain History Chronic Pain: Yes (HIP PAIN) - Surgical History Prior Surgeries: R BON. BREAST R MASTECTOMY AND LYMPH. CHOLECYSTECTOMY. CYST REMOVAL ESOPHAGUS, HEART,LUNG. KNEE SCOPE R. UPPER PARTIAL LOBECTOMY. COLONOSCOPY ANE Review of Systems Review of Systems: - Exercise capacity Exercise capacity: <4 METS ANE Patient History - Allergies Allergies/Adverse Reactions: Penicillins Allergy (Intermediate, Verified 06/05/17 16:03) SWELLING codeine [Codeine] Allergy (Mild, Verified 03/26/16 11:18) Vomiting steroids Allergy (Uncoded 03/26/16 11:18) Other-Enter Comments - Home Medications Home Medications: Amlodipine Besylate/Benazepril [Amlodipine-Benazepril 5-10 mg] 1 each PO DAILY 09/23/15 [Last Taken 06/04/17] Albuterol [Proventil Inhaler HFA (*)] 1 - 2 puffs IH DAILY PRN 03/23/16 [Last Taken 02/26/16] LORazepam [Ativan (*)] 0.5 mg PO TID 03/23/16 [Last Taken 06/05/17] Herbals/Supplements -Info Only 1 ea PO DAILY 06/05/17 [Last Taken Unknown] Loperamide HCl [Imodium 2 mg (*)] 2 mg PO PRN PRN 06/05/17 [Last Taken Unknown] diphenhydrAMINE [Benadryl 25 MG (*)] 25 mg PO Q2D 06/05/17 [Last Taken Unknown] - NPO status NPO Since - Liquids (Date): 06/09/17 NPO Since - Liquids (Time): 20:00 NPO Since - Solids (Date): 06/09/17 NPO Since - Solids (Time): 20:00 - Anes Hx Anes Hx: no prior problems - Smoking Hx Smoking Status: Light smoker - Family Anes Hx Family Hx Anesthesia Complications: NEG ANE Labs/Vital Signs - Labs Result Diagrams: 06/10/17 04:51 06/10/17 04:51 - Vital Signs Blood Pressure: 187/77 Heart Rate: 90 Respiratory Rate: 20 O2 Sat (%): 98 Height: 162.56 cm Weight: 59.874 kg ANE Physical Exam - Airway Neck exam: FROM Mallampati Score: Class 2 Mouth exam: poor dentition - Pulmonary Pulmonary: no respiratory distress, expiratory wheeze - Cardiovascular Cardiovascular: regular rate and rhythym, no murmur, rub, or gallop - ASA Status ASA Status: III ANE Anesthesia Plan Anesthesia Plan: GA with mask
--- NOTE | 2017-06-10 16:22 | GIREPORT ---
[facility] - Endoscopy Department Patient Name: Ashwini Moy Procedure Date: 06/10/2017 3:42 PM Patient Type: Outpatient Attending MD/ ER Physician: Phillip Mcintyre MD Procedure: Upper GI endoscopy Indications: Abdominal pain in the right upper quadrant, Nausea Patient Profile: 82 year old with pancreatic cancer presents for evaluation of RUQ abdom inal pain, nausea, poor appetitie and possiblity of enteral stenting. Providers: Phillip Mcintyre MD Medicines: Monitored Anesthesia Care Complications: No immediate complications. Estimated blood loss: None. Description of Procedure: After obtaining informed consent, the endoscope was passed under direct vision. Throughout the procedure, the patient's blood pressure, pulse, and oxygen saturations were monitored continuously. The Endoscope was intro duced through the mouth, and advanced to the second part of duodenum. [facility] er GI endoscopy was accomplished without difficulty. The patient tolerated th e procedure well. Findings: The examined esophagus was normal. A medium-sized hiatal hernia was present. The examined duodenum was eseentially normal. There may be slight lumin al narrowing but the scope was easily passed into the second portion of th e duodenum. Estimated Blood Loss: Estimated blood loss: none. Post Op Diagnosis: - Normal esophagus. - Medium-sized hiatal hernia. - Possible minimal luminal narrowing in the duodenum? - No specimens collected. Recommendation: - Return patient to [facility] for ongoing care. - Clear liquid diet. - No indication for stenting. - Thank you for allowing me to participate in the care of your patient. Attending Participation: I personally performed the entire procedure. Phillip Mcintyre MD Phillip Mcintyre MD 06/10/2017 4:22:13 PM This report has been signed electronicallyPhillip Mcintyre MD Number of Addenda: 0 Note Initiated On: 06/10/2017 3:42 PM [email or web address]
--- NOTE | 2017-06-10 16:48 | ASMTCMCOM ---
CM Note CM Note Notes: Patient defers palliative care consult until her biopsy reports are back. Biopsy and endoscopy performed today. CM to follow. Date Signed: 06/10/2017 04:47 PM Electronically Signed By:Megan Grace RN
[2017-06-11] MEDS: HYDROmorphONE/DILAUDID 2 MG/ML INJ IVP PRN ×2 (05:51→10:48)
[2017-06-11 06:09] LABS: PLATELET COUNT 192 10^3/uL (150-400)
[2017-06-11] MEDS: ERTAPENEM 1 GM VIAL IV SCH (08:44)
[2017-06-11] MEDS: LORazepam 0.5 MG TAB PO SCH ×3 (08:47→21:51)
--- NOTE | 2017-06-11 09:23 | HOSPPROG ---
Hospitalist Progress Note Assessment/Plan: 82-year-old woman with a history of COPD and a remote history of breast cancer is admitted with abdominal pain and weight loss. She saw her primary care provider the day before admission had some blood work done and was told to come into the hospital. Evaluation included a CT scan which revealed a pancreatic mass with gastric involvement and liver Mets. # pancreatic mass with liver Mets and gastric involvement. Elevated CA 19-9 points to likely pancreatic primary * Ultrasound-guided biopsy of liver metastases to be done with results pending * Appreciate Oncology note Pt might be interested in chemo if palliative and well tolerated * Pain control, tramadol not effective, does OK with PO dilauded but a little confused. * Waiting for biopsy results to discuss options for patient and family and likely palliative care consult after recommendations made. * Son has been quite involved in care. # sigmoid diverticulitis, noted on CT scan. I suspect this likely is more related to metastatic disease and inflammation rather than acute diverticulitis. Will discontinue antibiotics. # diarrhea, can start low-dose Imodium depending on patient's symptoms # possible gastric outlet obstruction given location of gastric wall thickening and pancreatic mass. * EGD revealed no obvious need for stent at this time and although she could develop obstruction in the future will monitor symptoms * Encourage patient to eat # COPD, mild: Continue oxygen as needed nebs as needed. # hypokalemia, replace as needed # leukocytosis, likely secondary to cancer and diverticulitis will follow. Disposition: Patient has overall poor prognosis, she is unclear yet whether she wants to pursue chemotherapy but would like to discuss this after the results of her biopsy are back and she has solid information. She and her son will then decide on palliative care consult after they talked with the oncologist. Will likely need a couple more days at least of hospitalization. Physical therapy is working with the patient to determine home needs. Subjective: Abdominal pain slightly better today. No new complaints Objective: Vital Signs Temp Pulse Resp BP Pulse Ox 36.4 C 90 18 126/71 H 96 06/11/17 09:02 06/11/17 09:02 06/11/17 09:02 06/11/17 09:02 06/11/17 09:02 Laboratory Results 06/11/17 06:00 06/11/17 06:00 06/10/17 06/11/17 06/12/17 05:59 05:59 05:59 Intake Total 1000 1025 Output Total 200 150 Balance 800 875 PT 17.5 SEC (12.0-15.0) H 06/09/17 04:10 INR 1.42 (0.83-1.16) H 06/09/17 04:10 - Physical Exam Constitutional: no apparent distress Eyes: PERRL Ears, Nose, Mouth, Throat: moist mucous membranes Cardiovascular: regular rate and rhythym Respiratory: no respiratory distress Psychiatric: interacting appropriately ICD10 Worksheet Patient Problems: Problems Problem Status Onset Osteoarthritis of left hip Acute Sigmoid diverticulitis Acute Pancreatic mass Acute Liver metastases Acute
--- NOTE | 2017-06-11 09:54 | SOAPPROG ---
SOAP Progress Note Assessment/Plan: Assessment: Pancreatis mass with metastasis Normal EGD with no GOO no mass in stomach not a candidate for stent and poor candidate for PEG due to omental involvement with tumor Plan: OK to advance diet as tolerated ] Will sign off 06/11/17 09:52 Subjective: CC Po appetite Pt sleepy but has been taking PO no n/v Objective: Vital Signs Temp Pulse Resp BP Pulse Ox 36.4 C 90 18 126/71 H 96 06/11/17 09:02 06/11/17 09:02 06/11/17 09:02 06/11/17 09:02 06/11/17 09:02 Laboratory Results 06/11/17 06:00 06/11/17 06:00 06/10/17 06/11/17 06/12/17 05:59 05:59 05:59 Intake Total 1000 1025 Output Total 200 150 Balance 800 875 PT 17.5 SEC (12.0-15.0) H 06/09/17 04:10 INR 1.42 (0.83-1.16) H 06/09/17 04:10 Physical Exam - Physical Exam General Appearance: no apparent distress Respiratory: lungs clear Cardiac/Chest: regular rate, rhythm Abdomen: non-tender, soft ICD10 Worksheet Patient Problems: Problems Problem Status Onset Liver metastases Acute Pancreatic mass Acute Sigmoid diverticulitis Acute Osteoarthritis of left hip Acute
[2017-06-11] MEDS ORDERED: MAGNESIUM SULF 1 GM/DEXTROSE 100 ML IV ONE (10:14)
[2017-06-11] MEDS: traMADol 50 MG TAB PO PRN (20:29)
[2017-06-11] MEDS ORDERED: POTASSIUM CL 20 MEQ/15 ML UDCUP PO ONE (22:00)
[2017-06-11] MEDS ORDERED: POTASSIUM Cl (KCl) 100 ML IV ONE (22:15)
[2017-06-12] MEDS: HYDROmorphONE/DILAUDID 2 MG TAB PO PRN (01:16)
[2017-06-12] MEDS: traMADol 50 MG TAB PO PRN ×3 (08:18→22:00)
[2017-06-12] MEDS: LORazepam 0.5 MG TAB PO SCH ×3 (08:18→22:00)
[2017-06-12] MEDS ORDERED: MAGNESIUM SULF 1 GM/DEXTROSE 100 ML IV ONE (09:37)
--- NOTE | 2017-06-12 13:44 | HOSPPROG ---
Hospitalist Progress Note Assessment/Plan: # metastatic pancreatic cancer likely - Dr Malloy to discuss treatment options today, do not want anything that would be intolerable - mets to liver, gastric involvement - no GOO on EGD # cough - check CXR - not WBC slightly up # COPD/chronic resp failure - on 2L O2 at home; start nebs # sigmoid diverticulitis on CT - possibly related to cancer - follow off abx # dvt ppx - lovenox # dispo - will likely need SNF Subjective: cough; very weak Objective: Vital Signs Temp Pulse Resp BP Pulse Ox 36.4 C 87 16 118/77 95 06/12/17 11:21 06/12/17 11:21 06/12/17 11:21 06/12/17 11:21 06/12/17 11:21 Laboratory Results 06/12/17 04:55 06/12/17 04:55 06/11/17 06/12/17 06/13/17 05:59 05:59 05:59 Intake Total 1025 1850 Output Total 150 500 Balance 875 1350 PT 17.5 SEC (12.0-15.0) H 06/09/17 04:10 INR 1.42 (0.83-1.16) H 06/09/17 04:10 chart reviewed CXR personally reviewed discussed with Dr Malloy - Physical Exam Constitutional: unkempt Cardiovascular: regular rate and rhythym, no murmur, rub, or gallop Respiratory: no respiratory distress, expiratory wheeze, rhonchi, other (R base rales, diminished L base BS) Gastrointestinal: soft, non-tender abdomen, no palpable masses ICD10 Worksheet Patient Problems: Problems Problem Status Onset Osteoarthritis of left hip Acute Sigmoid diverticulitis Acute Pancreatic mass Acute Liver metastases Acute
--- NOTE | 2017-06-12 14:00 | SOAPPROG ---
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 Her CA 19-9 level is markedly elevated which supports the diagnosis. Her EGD revealed no evidence of duodenal or gastric outlet obstruction. I reviewed her diagnosis with her today. Her son was present for our discussion. I explained that her cancer is not curable, and that treatment would be palliative. Her performance status is fairly poor, and I think that she would struggle with chemotherapy. The potential side effects were reviewed. We also discussed the option of Hospice / palliative care. She is undecided as to how she would want to proceed. Palliative care will see her later, and overall I would tend to favor Hospice/palliative care in this case which I discussed with her today. Continue PRN Dilaudid for pain control. Case d/w Dr. Frazier. Patient's and son's questions answered. She may benefit from eventual genetic testing given her family history. Subjective: Remains weak and fatigued. She is not getting out of bed. Denies pain. Son at bedside. Objective: Vital Signs Temp Pulse Resp BP Pulse Ox 36.4 C 87 16 118/77 95 06/12/17 11:21 06/12/17 11:21 06/12/17 11:21 06/12/17 11:21 06/12/17 11:21 Laboratory Results 06/12/17 04:55 06/12/17 04:55 06/11/17 06/12/17 06/13/17 05:59 05:59 05:59 Intake Total 1025 1850 Output Total 150 500 Balance 875 1350 PT 17.5 SEC (12.0-15.0) H 06/09/17 04:10 INR 1.42 (0.83-1.16) H 06/09/17 04:10 - Time Spent With Patient Time Spent With Patient: 30 minutes Physical Exam - Physical Exam General Appearance: alert, no apparent distress, other (Fatigued) EENT: PERRL/EOMI Abdomen: non-tender, soft Neuro/Psych: alert, normal mood/affect, oriented x 3 ICD10 Worksheet Patient Problems: Problems Problem Status Onset Liver metastases Acute Pancreatic mass Acute Sigmoid diverticulitis Acute Osteoarthritis of left hip Acute
[2017-06-12] MEDS: ENOXAPARIN 40 MG/0.4 ML SYR SC SCH (14:12)
[2017-06-12] MEDS: IPRATROPIUM/ALBUTEROL 3 ML DEYVIAL IH PRN (17:28)
--- NOTE | 2017-06-12 17:31 | ASMTCMCOM ---
EMMANUEL Note CM Note Notes: Pt will have palliative care conference 06/13/17 at noon. Son will be present. Tom from palliative asked that if possible CAROLYNN Briones CM, could also attend. Emmanuel will follow Date Signed: 06/12/2017 05:31 PM Electronically Signed By:Camelia Barker RN
[2017-06-12] MEDS: POTASSIUM Cl (KCl) 10 MEQ in NS 100 ML IV SCH (21:59)
[2017-06-13] MEDS: POTASSIUM Cl (KCl) 10 MEQ in NS 100 ML IV SCH (00:18)
[2017-06-13 04:28] LABS: PLATELET COUNT 173 10^3/uL (150-400)
[2017-06-13] MEDS: IPRATROPIUM/ALBUTEROL 3 ML DEYVIAL IH PRN (05:33)
[2017-06-13] MEDS ORDERED: MAGNESIUM SULF 1 GM/DEXTROSE 100 ML IV ONE (08:01)
[2017-06-13] MEDS: LORazepam 0.5 MG TAB PO SCH ×3 (10:09→22:27)
[2017-06-13] MEDS: ENOXAPARIN 40 MG/0.4 ML SYR SC SCH (10:10)
--- NOTE | 2017-06-13 11:10 | SOAPPROG ---
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 Her CA 19-9 level is markedly elevated which supports the diagnosis. Her EGD revealed no evidence of duodenal or gastric outlet obstruction. I reviewed her diagnosis with her and her son Ismael again today. We spoke about things at length yesterday as well. I explained that her cancer is not curable, and that treatment would be palliative. Her performance status is fairly poor ( KPS of 50 - 60%). I think that her ability to tolerate chemotherapy is questionable. The potential side effects were reviewed again. We discussed the option of Hospice / palliative care. She remains undecided as to how she would want to proceed, but overall is leaning towards palliative care/ Hospice. I think Hospice care is likely the best option in this situation. Palliative care will see her Today. Overall I would tend to favor Hospice/palliative care in her case which I discussed with her and Ismael today. Continue PRN Dilaudid for pain control. Patient's and son's questions answered. She may benefit from eventual genetic testing given her family history. 06/13/17 11:06 Subjective: Denies pain. Waiting to meet with palliative care Objective: Vital Signs Temp Pulse Resp BP Pulse Ox 36.8 C 116 H 26 H 164/99 H 93 06/13/17 09:25 06/13/17 09:25 06/13/17 09:33 06/13/17 09:25 06/13/17 09:25 Laboratory Results 06/13/17 04:10 06/13/17 04:10 06/12/17 06/13/17 06/14/17 05:59 05:59 05:59 Intake Total 1850 450 400 Output Total 500 Balance 1350 450 400 PT 17.5 SEC (12.0-15.0) H 06/09/17 04:10 INR 1.42 (0.83-1.16) H 06/09/17 04:10 - Time Spent With Patient Time Spent With Patient: 25 minutes Physical Exam - Physical Exam General Appearance: alert, no apparent distress EENT: PERRL/EOMI Abdomen: non-tender, soft Neuro/Psych: alert, normal mood/affect ICD10 Worksheet Patient Problems: Problems Problem Status Onset Liver metastases Acute Pancreatic mass Acute Sigmoid diverticulitis Acute Osteoarthritis of left hip Acute
--- NOTE | 2017-06-13 12:35 | HOSPPROG ---
Hospitalist Progress Note Assessment/Plan: 82-year-old woman with a history of COPD and a remote history of breast cancer is admitted with abdominal pain and weight loss. She saw her primary care provider the day before admission had some blood work done and was told to come into the hospital. Evaluation included a CT scan which revealed a pancreatic mass with gastric involvement and liver Mets. Pathology c/w pancreatic cancer. Plans for hospice, no chemo. # metastatic pancreatic cancer likely - opting for no treatment; - mets to liver, gastric involvement - no GOO on EGD # cough - CXR ok; small L pleural effusion (likely malignant) # COPD/chronic resp failure - on 2L O2 at home; start nebs # sigmoid diverticulitis on CT - possibly related to cancer - follow off abx # dvt ppx - lovenox # dispo - possibly home with hospice Subjective: met with palliative care today Objective: Vital Signs Temp Pulse Resp BP Pulse Ox 36.8 C 116 H 26 H 164/99 H 93 06/13/17 09:25 06/13/17 09:25 06/13/17 09:33 06/13/17 09:25 06/13/17 09:25 Laboratory Results 06/13/17 04:10 06/13/17 04:10 06/12/17 06/13/17 06/14/17 05:59 05:59 05:59 Intake Total 1850 450 400 Output Total 500 Balance 1350 450 400 PT 17.5 SEC (12.0-15.0) H 06/09/17 04:10 INR 1.42 (0.83-1.16) H 06/09/17 04:10 - Time Spent With Patient Time Spent with Patient: greater than 35 minutes Time Spent with Patient: Greater than 35 minutes spent on this patients care, greater than 50% of time spent counseling, educating, and coordinating care regarding the above mentioned plan. - Physical Exam Constitutional: uncomfortable ICD10 Worksheet Patient Problems: Problems Problem Status Onset Liver metastases Acute Pancreatic mass Acute Sigmoid diverticulitis Acute Osteoarthritis of left hip Acute
--- NOTE | 2017-06-13 13:59 | ASMTCMCOM ---
CM Note CM Note Notes: Pt had palliative consult today. Present were pt, pt's son Ismael, palliative consulter Tom and this CM. Pt would like to go home with hospice. Pt's son had recent surgery and cannot care for her at home without help. Hi sister is arriving from [place] on Saturday with her 17 y/o dtr. They plan to stay for a while and between them can likely provide the care in the home that pt needs. [facility] sent a referral. They will reach out to family and arrange a time to meet with them. CM will continue to follow. Date Signed: 06/13/2017 01:58 PM Electronically Signed By:Anali Velazquez LCSW
[2017-06-13] MEDS: traMADol 50 MG TAB PO PRN (19:57)
[2017-06-13] MEDS: HYDROmorphONE/DILAUDID 2 MG TAB PO PRN (22:27)
[2017-06-14] MEDS: traMADol 50 MG TAB PO PRN (02:16)
[2017-06-14] MEDS: LORazepam 0.5 MG TAB PO SCH ×3 (08:39→22:58)
[2017-06-14] MEDS: ENOXAPARIN 40 MG/0.4 ML SYR SC SCH (08:39)
[2017-06-14] MEDS ORDERED: MAGNESIUM SULF 1 GM/DEXTROSE 100 ML IV ONE (10:08)
[2017-06-14] MEDS ORDERED: POTASSIUM CL 10 MEQ TAB PO ONE (10:13)
[2017-06-14] MEDS: HYDROmorphONE/DILAUDID 2 MG TAB PO PRN (11:46)
--- NOTE | 2017-06-14 12:33 | HOSPPROG ---
Hospitalist Progress Note Assessment/Plan: 82-year-old woman with a history of COPD and a remote history of breast cancer is admitted with abdominal pain and weight loss. She saw her primary care provider the day before admission had some blood work done and was told to come into the hospital. Evaluation included a CT scan which revealed a pancreatic mass with gastric involvement and liver Mets. Pathology c/w pancreatic cancer. Plans for hospice, no chemo. # R arm edema - dc PICC today; US negative yesterday # metastatic pancreatic cancer likely - opting for no treatment; - mets to liver, gastric involvement - no GOO on EGD # cough - CXR ok; small L pleural effusion (likely malignant) # COPD/chronic resp failure - on 2L O2 at home; start nebs # sigmoid diverticulitis on CT - possibly related to cancer - follow off abx # dvt ppx - lovenox # dispo - home with hospice, Saturday; MOST completed today Subjective: R arm swollen - not really painful Objective: Vital Signs Temp Pulse Resp BP Pulse Ox 36.4 C 86 1,797 H 145/70 H 2 L 06/14/17 08:25 06/14/17 08:25 06/14/17 08:25 06/14/17 08:25 06/14/17 08:25 Laboratory Results 06/13/17 04:10 06/14/17 04:45 06/13/17 06/14/17 06/15/17 05:59 05:59 05:59 Intake Total 450 700 Output Total 800 Balance 450 -100 PT 17.5 SEC (12.0-15.0) H 06/09/17 04:10 INR 1.42 (0.83-1.16) H 06/09/17 04:10 - Time Spent With Patient Time Spent with Patient: greater than 25 minutes Time Spent with Patient: Greater than 25 minutes spent on this patients care, greater than 50% of time spent counseling, educating, and coordinating care regarding the above mentioned plan. - Physical Exam Constitutional: no apparent distress Musculoskeletal: other (R arm with slight edema; mild redness, not TTP) ICD10 Worksheet Patient Problems: Problems Problem Status Onset Osteoarthritis of left hip Acute Sigmoid diverticulitis Acute Pancreatic mass Acute Liver metastases Acute
--- NOTE | 2017-06-14 15:06 | SOAPPROG ---
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 Her CA 19-9 level is markedly elevated which supports the diagnosis. Her EGD revealed no evidence of duodenal or gastric outlet obstruction. Patient and son met with palliative care yesterday and have opted for home Hospice. I think that this is her best option. I support this decision. [facility] will meet with them today. Continue PRN Dilaudid for pain control. Patient's and son's questions answered. She may benefit from eventual genetic testing given her family history, however given her continued decline I do not think that this will be possible. The possibility of a hereditary cancer syndrome was discussed with her son Ismael at previous visits. 06/14/17 15:05 Subjective: More lethargic today. Patient and family have decided to pursue home hospice. Objective: Vital Signs Temp Pulse Resp BP Pulse Ox 36.4 C 86 1,797 H 145/70 H 2 L 06/14/17 08:25 06/14/17 08:25 06/14/17 08:25 06/14/17 08:25 06/14/17 08:25 Laboratory Results 06/13/17 04:10 06/14/17 04:45 06/13/17 06/14/17 06/15/17 05:59 05:59 05:59 Intake Total 450 700 Output Total 800 Balance 450 -100 PT 17.5 SEC (12.0-15.0) H 06/09/17 04:10 INR 1.42 (0.83-1.16) H 06/09/17 04:10 - Time Spent With Patient Time Spent With Patient: 15 minutes Physical Exam - Physical Exam General Appearance: other (Asllep. Awakens to voice. Lethargic. Answeres questions appropriately) EENT: No scleral icterus (R), No scleral icterus (L) ICD10 Worksheet Patient Problems: Problems Problem Status Onset Liver metastases Acute Pancreatic mass Acute Sigmoid diverticulitis Acute Osteoarthritis of left hip Acute
[2017-06-15] MEDS: traMADol 50 MG TAB PO PRN ×2 (04:32→21:07)
[2017-06-15] MEDS: ENOXAPARIN 40 MG/0.4 ML SYR SC SCH (08:52)
[2017-06-15] MEDS: LORazepam 0.5 MG TAB PO SCH ×3 (08:53→21:08)
[2017-06-15] MEDS: HYDROmorphONE/DILAUDID 2 MG TAB PO PRN (09:04)
--- NOTE | 2017-06-15 10:54 | HOSPPROG ---
Hospitalist Progress Note Assessment/Plan: 82-year-old woman with a history of COPD and a remote history of breast cancer is admitted with abdominal pain and weight loss. She saw her primary care provider the day before admission had some blood work done and was told to come into the hospital. Evaluation included a CT scan which revealed a pancreatic mass with gastric involvement and liver Mets. Pathology c/w pancreatic cancer. Plans for hospice, no chemo. # R arm edema - better tiday after removing PICC # metastatic pancreatic cancer likely - opting for no treatment - mets to liver, gastric involvement - no GOO on EGD # cough - CXR ok; small L pleural effusion (likely malignant) # COPD/chronic resp failure - on 2L O2 at home; on nebs # sigmoid diverticulitis on CT - possibly related to cancer - follow off abx # dvt ppx - lovenox # dispo - home with hospice, Saturday; MOST completed today Subjective: somewhat confused today; had received dilaudid this morning Objective: Vital Signs Temp Pulse Resp BP Pulse Ox 36.7 C 89 14 131/66 H 98 06/15/17 08:45 06/15/17 08:45 06/15/17 08:45 06/15/17 08:45 06/15/17 08:45 Laboratory Results 06/13/17 04:10 06/14/17 04:45 06/14/17 06/15/17 06/16/17 05:59 05:59 06:59 Intake Total 700 700 Output Total 800 450 Balance -100 250 PT 17.5 SEC (12.0-15.0) H 06/09/17 04:10 INR 1.42 (0.83-1.16) H 06/09/17 04:10 - Physical Exam Constitutional: uncomfortable Cardiovascular: regular rate and rhythym, no murmur, rub, or gallop Respiratory: no respiratory distress, no rales or rhonchi Gastrointestinal: soft, non-tender abdomen, no palpable masses Musculoskeletal: other (R arm edema better) ICD10 Worksheet Patient Problems: Problems Problem Status Onset Osteoarthritis of left hip Acute Sigmoid diverticulitis Acute Pancreatic mass Acute Liver metastases Acute
--- NOTE | 2017-06-15 12:09 | ASMTCMCOM ---
CM Note CM Note Notes: Alicia from [facility] met with pt and son Ismael yesterday to go over details of pt's DC home with hospice on Saturday. Pt signed MDPOA paperwork naming her son and also filled out the MOST form. [employer] funds requested for pt to help with purchase of supplies needed in the home. CM raji continue to follow. Date Signed: 06/15/2017 12:09 PM Electronically Signed By:Anali Velazquez LCSW
[2017-06-16] MEDS: LORazepam 0.5 MG TAB PO SCH ×3 (09:20→22:02)
[2017-06-16] MEDS: ENOXAPARIN 40 MG/0.4 ML SYR SC SCH (09:20)
[2017-06-16] MEDS: ONDANSETRON DISINTEGRATING 4 MG TAB PO PRN (10:47)
--- NOTE | 2017-06-16 10:50 | HOSPPROG ---
Hospitalist Progress Note Assessment/Plan: 82-year-old woman with a history of COPD and a remote history of breast cancer is admitted with abdominal pain and weight loss. She saw her primary care provider the day before admission had some blood work done and was told to come into the hospital. Evaluation included a CT scan which revealed a pancreatic mass with gastric involvement and liver Mets. Pathology c/w pancreatic cancer. Plans for hospice, no chemo. Should discharge to home tomorrow. # somnolence - may be progression of disease # R arm edema - may indicate a DVT although US negative 06/13 - she has been on lovenox ppx - unclear if AC would be appropriate given goals - will hold on repeating US for now # metastatic pancreatic cancer likely - opting for no treatment - mets to liver, gastric involvement - no GOO on EGD # cough - CXR ok; small L pleural effusion (likely malignant) # COPD/chronic resp failure - on 2L O2 at home; on nebs # sigmoid diverticulitis on CT - likely related to cancer - follow off abx # dvt ppx - lovenox # dispo - home with hospice, Saturday Subjective: c/o somnolence and abd pain; R arm more swollen Objective: Vital Signs Temp Pulse Resp BP Pulse Ox 37.0 C 119 H 20 163/94 H 95 06/16/17 03:07 06/16/17 03:07 06/16/17 03:07 06/16/17 03:07 06/16/17 03:07 Laboratory Results 06/13/17 04:10 06/14/17 04:45 06/15/17 06/16/17 06/17/17 04:59 05:59 05:59 Intake Total Output Total Balance PT 17.5 SEC (12.0-15.0) H 06/09/17 04:10 INR 1.42 (0.83-1.16) H 06/09/17 04:10 ICD10 Worksheet Patient Problems: Problems Problem Status Onset Osteoarthritis of left hip Acute Sigmoid diverticulitis Acute Pancreatic mass Acute Liver metastases Acute
[2017-06-16 21:20] VITALS: O2SAT 97
[2017-06-16] MEDS: traMADol 50 MG TAB PO PRN (22:02)
[2017-06-17 08:12] VITALS: BP 140/70; PULSE 94; RESP 18; TEMP 97.2
[2017-06-17] MEDS: LORazepam 0.5 MG TAB PO SCH (09:33)
[2017-06-17] MEDS: ENOXAPARIN 40 MG/0.4 ML SYR SC SCH (09:34)
--- NOTE | 2017-06-17 10:06 | PDIAF ---
- Diagnosis Code Status: Do Not Resuscitate - Medication Management Discharge Medications: Medications to Continue on Transfer Amlodipine Besylate/Benazepril [Amlodipine-Benazepril 5-10 mg] 1 each PO DAILY 09/23/15 [Last Taken 06/04/17] Albuterol [Proventil Inhaler HFA (*)] 1 - 2 puffs IH DAILY PRN 03/23/16 [Last Taken 02/26/16] LORazepam [Ativan (*)] 0.5 mg PO TID 03/23/16 [Last Taken 06/05/17] Acetaminophen [Tylenol 325mg (*)] 650 mg PO Q4HRS PRN tab 06/17/17 [Last Taken Unknown] HYDROmorphone HCL [Dilaudid 2 mg (*)] 2 - 4 mg PO Q4HRS PRN #20 tab 06/17/17 [ Last Taken Unknown] Ondansetron Odt [Zofran Odt 4 mg (*)] 4 mg PO Q4HRS PRN #30 tab 06/17/17 [Last Taken Unknown] traMADol [Ultram 50 mg (*)] 50 mg PO Q6HRS PRN #30 tab 06/17/17 [Last Taken Unknown] Care Home Antibiotics: none Additional Medication Instructions: home hospice Discharge Medications: Refer to the Discharge Home Medication list for PRN reason. PICC Care - Routine: N/A - Orders Home Care Face to Face: 06/17/2017 Caitlyn Pena MD Isolation Type: None Oxygen: has home O2 already Diet Recommendation: no restrictions on diet Diet Texture: Regular Texture Diet Hay: Not applicable - Follow Up Care Current Providers and Referrals: Patient,NotPresent [Unknown] - As per Instructions Kelly Hi MD [Primary Care Provider] - 1-2 days
--- NOTE | 2017-06-17 11:43 | ASDISCHSUM ---
Discharge Information Plan Status:Hospice-Home Medically Cleared to Leave:06/17/2017 Discharge Date:06/17/2017 11:40 AM CM D/C Disposition:Hospice Home ADT D/C Disposition:Hospice Home Projected Discharge Date:06/17/2017 11:00 AM Transportation at D/C:Family Discharge Delay Reason: Follow-Up Date:06/17/2017 11:00 AM Discharge Slot: Final Diagnosis: Placement Information Referral Type:*Hospice Referral ID:[id number] Provider Name:[facility] Address 1:[address] Phone Number: Address 2: Fax Number: City:[place] Selection Factors: State:[place] Patient Contact Information Contact Name:RICHARDKOREY Relationship:Raffi Address: City: [facility] Phone: [facility] Code: Email: Financial Information Financial Class:Medicare Advantage Plans Primary Plan Desc:[facility] [employer] Primary Plan Number:[id number] Secondary Plan Desc: Secondary Plan Number: Assessment Information LACE LACE Acuity / Level of Answers: Yes Care: Did the patient have an inpatient admission? Comorbidities - select Answers: Any tumor (including all that apply lymphoma or leukemia) Chronic pulmonary disease # of Emergency department Answers: 1-2 visits in the last 6 months Score: 8 Date Signed: 06/05/2017 04:38 PM Electronically Signed By:Oksana Miller RN [facility] CM Progress Note CM Note CM Note Notes: Pt admitted with suspected pancreatic ca. Pt is leaning towards no treatment but wants to discuss with her son before she makes her final decision. has ordered a palliative consult. CM will continue to follow for any DC needs. Date Signed: 06/06/2017 03:40 PM Electronically Signed By:Anali Velazquez LCSW [facility] CM Progress Note CM Note CM Note Notes: Chart reviewed. Attempted to met with patient but she is asleep. Notes indicate patient wishes to pursue biopsy. Plan of care TBD at this time. CM to follow. Date Signed: 06/07/2017 03:55 PM Electronically Signed By:Megan Grace RN [facility] CM Progress Note CM Note CM Note Notes: Per Spiritual services, Palliative care to meet with patient next week after biopsy results are in. CM to follow. Date Signed: 06/07/2017 04:23 PM Electronically Signed By:Megan Grace RN [facility] CM Progress Note CM Note CM Note Notes: Patient defers palliative care consult until her biopsy reports are back. Biopsy and endoscopy performed today. CM to follow. Date Signed: 06/10/2017 04:47 PM Electronically Signed By:Megan Grace RN [facility] CM Progress Note CM Note CM Note Notes: Pt will have palliative care conference 06/13/17 at noon. Son will be present. Tom from palliative asked that if possible CAROLYNN Briones CM, could also attend. Cm will follow Date Signed: 06/12/2017 05:31 PM Electronically Signed By:Camelia Barker RN [facility] CM Progress Note CM Note CM Note Notes: Pt had palliative consult today. Present were pt, pt's son Ismael, palliative consulter Tom and this CM. Pt would like to go home with hospice. Pt's son had recent surgery and cannot care for her at home without help. Hi sister is arriving from [place] on Saturday with her 17 y/o dtr. They plan to stay for a while and between them can likely provide the care in the home that pt needs. [facility] sent a referral. They will reach out to family and arrange a time to meet with them. CM will continue to follow. Date Signed: 06/13/2017 01:58 PM Electronically Signed By:Anali Velazquez LCSW [facility] Progress Note CM Note CM Note Notes: Alicia from [facility] met with pt and son Ismael yesterday to go over details of pt's DC home with hospice on Saturday. Pt signed MDPOA paperwork naming her son and also filled out the MOST form. [employer] requested for pt to help with purchase of supplies needed in the home. CM raji continue to follow. Date Signed: 06/15/2017 12:09 PM Electronically Signed By:Anali Velazquez LCSW Intervention Information
--- NOTE | 2017-06-17 11:47 | ASMTLACE ---
LACE Length of stay for Answers: 7-13 days current admission Acuity / Level of Answers: Yes Care: Did the patient have an inpatient admission? Comorbidities - select Answers: Any tumor (including all that apply lymphoma or leukemia) Chronic pulmonary disease # of Emergency department Answers: 1-2 visits in the last 6 months Score: 13 Date Signed: 06/17/2017 11:46 AM Electronically Signed By:CHARLI Bryant
--- NOTE | 2017-06-18 06:39 | GDS ---
[f rep st] DISCHARGE SUMMARY SERVICE: [facility] Hospitalist. CONSULTS: General Surgery, Oncology, Gastroenterology, Interventional Radiology. PROCEDURES: Lower extremity ultrasound, chest x-ray, liver biopsy, PICC line placement on 06/07/2017, abdominal CT. Also, an upper GI endoscopy on 2017, Dr. Mcintyre. H AND P: Please see previously dictated note by Dr. Hdez. ADMISSION DIAGNOSES: 1. Acute abdominal pain. 2. Pancreatic mass. 3. Leukocytosis. 4. Hypovolemic hyponatremia. 5. Hypokalemia. 6. Chronic obstructive pulmonary disease. 7. Chronic hypoxic respiratory failure. DISCHARGE DIAGNOSES: 1. Metastatic pancreatic cancer. 2. Chronic obstructive pulmonary disease. 3. Chronic hypoxic respiratory failure. 4. Hypertension. HOSPITAL COURSE: The patient was admitted to the hospital for evaluation of abdominal pain, and on CT found to have a pancreatic mass and lesions on her liver. 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 Hematology/Oncology was asked to see the patient and discuss care options. She was noted to have a significant elevated CA-19. Discussions were had with her and her family regarding possible palliative treatments, but she and her family would prefer to discharge home with hospice care. On the day of discharge, pain was controlled with oral Dilaudid and tramadol. She was tolerating a diet. Home hospice care has been ordered and they will be evaluating her shortly after discharge. Her primary care provider is Dr. Kelly Hi at the [facility] location. I strongly recommended her and her family to schedule a followup appointment with Dr. Hi in the next few days as she can certainly help coordinate care as needed. DISCHARGE MEDICATIONS: Dilaudid 2-4 mg as-needed every 4 hours, #20 prescription given. Zofran 4 mg as-needed every 4 hours, #30 script given. Tramadol 50 mg as-needed hours #30, prescription given. Continue with amlodipine, benazepril, albuterol, Ativan, Tylenol, and home O2 as previously directed. /[id number]/MODL MTDD
== END 2017-06-17 11:40 | disposition hospice, home (50) | DRG 436 ==
LOC: EDUNIT# → OBSVTOIN 14:07 → F1N 16:48
PROVIDERS: ADMIT Internal Medicine; ATTEND Family Medicine
PROC: 02HV33Z Insertion of Infusion Device into Superior Vena Cava, Percutaneous Approach (ICD-10-PCS; 2017-06-07)
PROC: 0DJ08ZZ Inspection of Upper Intestinal Tract, Via Natural or Artificial Opening Endoscopic (ICD-10-PCS; 2017-06-10)
PROC: 0FB03ZX Excision of Liver, Percutaneous Approach, Diagnostic (ICD-10-PCS; principal; 2017-06-10 12:15)
DX: C25.2 Malignant neoplasm of tail of pancreas (principal); C78.89 Secondary malignant neoplasm of other digestive organs; C77.2 Secondary and unspecified malignant neoplasm of intra-abdominal lymph nodes; C78.7 Secondary malignant neoplasm of liver and intrahepatic bile duct; C78.6 Secondary malignant neoplasm of retroperitoneum and peritoneum; C79.51 Secondary malignant neoplasm of bone; K57.32 Diverticulitis of large intestine without perforation or abscess without bleeding; E86.1 Hypovolemia; E87.1 Hypo-osmolality and hyponatremia; E87.6 Hypokalemia; E83.42 Hypomagnesemia; J44.9 Chronic obstructive pulmonary disease, unspecified; F17.210 Nicotine dependence, cigarettes, uncomplicated; J96.11 Chronic respiratory failure with hypoxia; Z99.81 Dependence on supplemental oxygen; I10 Essential (primary) hypertension; K58.9 Irritable bowel syndrome, unspecified; Z85.3 Personal history of malignant neoplasm of breast; Z90.11 Acquired absence of right breast and nipple; Z96.642 Presence of left artificial hip joint
CPT/HCPCS: 86301-90; 86304-90; 96374; 97116-GP; 97161-GP; 97165-GO; 97530-GP; 97535-GO; C1751; G8978-GP-CK; G8979-GP-CI; G8979-GP-CJ; G8980-GP-CI; G8987-GO-CK; G8988-GO-CI; J1170; J1335; J1650; J2250; J2310; J2405; J2704; J2997; J3010; J3475; J3480; Q9967